=== PATIENT | female | born 1980 | race Hispanic/Latino ===

== ENCOUNTER 2020-01-03 11:59 | Emergency (ER) | payer OTHER ==
[2020-01-03 12:16] VITALS: BP 129/72
[2020-01-03] MEDS ORDERED: KETOROLAC 30 MG/1 ML INJ IV ONE (13:06)
[2020-01-03] MEDS ORDERED: ONDANSETRON 4 MG/2 ML INJ IV ONE (13:06)
[2020-01-03 14:31] LABS: Basophils % (Auto) 0.2 % (0.0-1.8); Hematocrit 39.6 % (30.3-42.9); Hemoglobin 13.3 gm/dl (10.1-14.3); Lymphocytes # (Auto) 0.7 K/mm3 (1.2-5.4); Lymphocytes % (Auto) 6.1 % (13.4-35.0); Mean Corpuscular HGB Conc 34 % (30-34); Mean Corpuscular Volume 97 fl (79-97); Monocytes # (Auto) 0.4 K/mm3 (0.0-0.8); Monocytes % (Auto) 3.8 % (0.0-7.3); Platelet Count 237 K/mm3 (140-440); Red Blood Count 4.07 M/mm3 (3.65-5.03); Red Cell Distribution Width 13.2 % (13.2-15.2)
--- NOTE | 2020-01-03 14:37 | Emergency Department Report ---
ED Female HPI - General Chief complaint: Abdominal Pain Stated complaint: (L) LOWER BACK PAIN/PELVIS PAIN Time Seen by Provider: 01/03/20 12:59 Source: EMS Mode of arrival: Ambulatory Limitations: No Limitations - History of Present Illness Initial comments: Patient is a 39-year-old female presents emergency room with complaints of left flank pain and suprapubic abdominal pain that began yesterday. She has associated urinary frequency. She states that she has nausea and had one episode of vomiting. She has been able to tolerate p.o. intake. She states that yesterday she began taking Azo [id number]. She denies any diarrhea, dysuria, dark urine, odor to the urine, vaginal discharge or irritation, fever. She denies any past medical history. No allergies to medications. Last menstrual cycle 12/29/2019. - Related Data Previous Rx's Medication Instructions Recorded Last Taken Type Ketorolac [Toradol] 10 mg PO Q6H PRN #7 tablet 01/03/20 Unknown Rx Ondansetron [Zofran Odt] 4 mg PO Q8HR PRN #7 tab.rapdis 01/03/20 Unknown Rx Tamsulosin [Flomax] 0.4 mg PO QDAY #4 cap 01/03/20 Unknown Rx traMADoL [Ultram 50 MG tab] 50 mg PO Q6HR PRN #7 tablet 01/03/20 Unknown Rx ED Review of Systems ROS: Stated complaint: (L) LOWER BACK PAIN/PELVIS PAIN Other details as noted in HPI Comment: All other systems reviewed and negative ED Past Medical Hx - Social History Smoking Status: Never Smoker - Medications Home Medications: Home Medications Medication Instructions Recorded Confirmed Last Taken Type Ketorolac [Toradol] 10 mg PO Q6H PRN #7 tablet 01/03/20 Unknown Rx Ondansetron [Zofran Odt] 4 mg PO Q8HR PRN #7 tab.rapdis 01/03/20 Unknown Rx Tamsulosin [Flomax] 0.4 mg PO QDAY #4 cap 01/03/20 Unknown Rx traMADoL [Ultram 50 MG tab] 50 mg PO Q6HR PRN #7 tablet 01/03/20 Unknown Rx ED Physical Exam - General Limitations: No Limitations General appearance: alert, in no apparent distress - Head Head exam: Present: atraumatic, normocephalic - Eye Eye exam: Present: normal appearance - ENT ENT exam: Present: mucous membranes moist - Respiratory Respiratory exam: Present: normal lung sounds bilaterally. Absent: respiratory distress, wheezes, rales, rhonchi, stridor, chest wall tenderness, accessory muscle use, decreased breath sounds, prolonged expiratory - Cardiovascular Cardiovascular Exam: Present: regular rate, normal rhythm, normal heart sounds. Absent: systolic murmur, diastolic murmur, rubs, gallop - GI/Abdominal GI/Abdominal exam: Present: soft, normal bowel sounds. Absent: distended, tenderness, guarding, rebound, rigid - Back Exam Back exam: Present: CVA tenderness (L). Absent: CVA tenderness (R) - Neurological Exam Neurological exam: Present: alert, oriented X3 - Psychiatric Psychiatric exam: Present: normal affect, normal mood - Skin Skin exam: Present: warm, dry, intact ED Course Vital Signs 01/03/20 12:11 Temperature 98.7 F Pulse Rate 54 L Respiratory 18 Rate Blood Pressure 129/72 Blood Pressure 129/72 [Right] O2 Sat by Pulse 100 Oximetry ED Medical Decision Making - Lab Data Result diagrams: 01/03/20 13:55 01/03/20 13:55 Lab Results 01/03/20 01/03/20 01/03/20 Range/Units 13:14 13:55 13:55 WBC 10.9 (4.5-11.0) K/mm3 RBC 4.07 (3.65-5.03) M/mm3 Hgb 13.3 (10.1-14.3) gm/dl Hct 39.6 (30.3-42.9) % MCV 97 (79-97) fl MCH 33 H (28-32) pg MCHC 34 (30-34) % RDW 13.2 (13.2-15.2) % Plt Count 237 (140-440) K/mm3 Lymph % (Auto) 6.1 L (13.4-35.0) % [place] % (Auto) 3.8 (0.0-7.3) % Eos % (Auto) 0.0 (0.0-4.3) % Baso % (Auto) 0.2 (0.0-1.8) % Lymph # (Auto) 0.7 L (1.2-5.4) K/mm3 [place] # (Auto) 0.4 (0.0-0.8) K/mm3 Eos # (Auto) 0.0 (0.0-0.4) K/mm3 Baso # (Auto) 0.0 (0.0-0.1) K/mm3 Seg Neutrophils % 89.9 H (40.0-70.0) % Seg Neutrophils # 9.8 H (1.8-7.7) K/mm3 Sodium 144 (137-145) mmol/L Potassium 4.5 (3.6-5.0) mmol/L Chloride 104.8 (98-107) mmol/L Carbon Dioxide 20 L (22-30) mmol/L Anion Gap 24 mmol/L BUN 16 (7-17) mg/dL Creatinine 0.8 (0.6-1.2) mg/dL Estimated GFR > 60 ml/min BUN/Creatinine Ratio 20 % Glucose 113 H (65-100) mg/dL Calcium 10.2 (8.4-10.2) mg/dL Total Bilirubin 0.70 (0.1-1.2) mg/dL AST 15 (5-40) units/L ALT 13 (7-56) units/L Alkaline Phosphatase 82 (35-129) units/L Total Protein 8.1 (6.3-8.2) g/dL Albumin 4.8 (3.9-5) g/dL Albumin/Globulin Ratio 1.5 % Urine Color [place] (Yellow) Urine Turbidity Clear (Clear) Urine pH TNR Ur Specific [place] 1.028 (1.003-1.030) Urine Protein TNR Urine Glucose (UA) TNR Urine Ketones TNR Urine Blood TNR Urine Nitrite TNR Urine Bilirubin TNR Urine Urobilinogen TNR Ur Leukocyte Esterase TNR Urine WBC (Auto) 5.0 (0.0-6.0) /HPF Urine RBC (Auto) 85.0 (0.0-6.0) /HPF U Epithel Cells (Auto) 5.0 (0-13.0) /HPF Urine Bacteria (Auto) 1+ (Negative) /HPF Urine Mucus 3+ /HPF Urine HCG, Qual Negative (Negative) - Radiology Data Radiology results: report reviewed CT abdomen pelvis wo con INDICATION / CLINICAL INFORMATION: left flank pain. TECHNIQUE: Axial CT imaging of abdomen and pelvis was obtained without contrast. Coronal and sagittal reformatted imaging obtained and reviewed. All CT scans at this location are performed using CT dose reduction for ALARA by means of automated exposure control. COMPARISON: None available. FINDINGS: CT abdomen without contrast demonstrates normal appearance of the liver, spleen, pancreas, right kidney, and adrenal glands, for noncontrast exam. No obvious gallbladder abn ormality. There is mild left hydronephrosis caused by a 6 mm calculus in the distal ureter. The calculus is approximately 1.3 cm from the left ureteral orifice. No additional calculi are seen within the urinary tract. CT pelvis without contrast shows mildly enlarged uterus. A 2.4 cm left ovarian cyst incidentally noted. No free fluid. Surgical clips are adjacent to the cecum indicative of prior appendectomy. GI tract is grossly unremarkable. Visualized lung bases are clear. Review of osseous structures is unremarkable. IMPRESSION: 1. Mild left hydronephrosis caused by a 6 mm calculus in the distal left ureter. Signer Name: Karina Reyes MD Signed: 01/03/2020 4:25 PM Workstation Name: [id number] Transcribed By: Dictated By: Karina Reyes MD Electronically Authenticated By: Karina Reyes MD Signed Date/Time: 01/03/201624 DD/ 20 TD/TT: - Medical Decision Making Patient is a 39-year-old female presents emergency room with complaints of left flank pain and suprapubic abdominal pain that began yesterday. She has associated urinary frequency. She states that she has nausea and had one ep isode of vomiting. She has been able to tolerate p.o. intake. She states that yesterday she began taking Azo [id number]. She denies any diarrhea, dysuria, dark urine, odor to the urine, vaginal discharge or irritation, fever. She denies any past medical history. No allergies to medications. Last menstrual cycle 12/29/2019. Vitals are stable. On exam: Left CVA tenderness. Labs are stable. UA shows evidence of red blood cells, no signs of UTI. CT abd pelvis without contrast: 1. Mild left hydronephrosis caused by a 6 mm calculus in the distal left ureter. Patient given pain medications and symptoms completely resolved and she was feeling much better ready to go home. Discussed all results with patient. Patient given her CT report. Patient given prescription for Zofran, flomax, tramadol, toradol. Advised patient Please take medication as prescribed. Do not drive or operate machinery while taking pain medication. Increase your water intake. Follow-up with your primary care doctor. Follow-up with urologist. Return to emergency room for any new or worsening symptoms. - Differential Diagnosis UTI, pyelonephritis, nephrolithiasis, hydronephrosis, obstruction Critical care attestation.: If time is entered above; I have spent that time in minutes in the direct care of this critically ill patient, excluding procedure time. ED Disposition Clinical Impression: Left flank pain, Nephrolithiasis Hydronephrosis Qualifiers: Hydronephrosis type: unspecified Qualified Code(s): N13.30 - Unspecified h ydronephrosis Disposition: TO HOME OR SELFCARE Is pt being admited?: No Does the pt Need Aspirin: No Condition: Stable Instructions: Kidney Stones (ED), Abdominal Pain (ED) Additional Instructions: Please take medication as prescribed. Do not drive or operate machinery while taking pain medication. Increase your water intake. Follow-up with your primary care doctor. Follow-up with urologist. Return to emergency room for any new or worsening symptoms. Prescriptions: Tamsulosin [Flomax] 0.4 mg PO QDAY #4 cap Ketorolac [Toradol] 10 mg PO Q6H PRN #7 tablet PRN Reason: Pain, Moderate (4-6) traMADoL [Ultram 50 MG tab] 50 mg PO Q6HR PRN #7 tablet PRN Reason: Pain , Severe (7-10) Ondansetron [Zofran Odt] 4 mg PO Q8HR PRN #7 tab.rapdis PRN Reason: Nausea And Vomiting Referrals: PRIMARY MD JORDYN [Primary Care Provider] - 2-3 Days CHRIS ROBLES MD [Staff Physician] - 2-3 Days [facility] [Provider Group] - 2-3 Days ERNESTO CAMPBELL MD [Staff Physician] - 2-3 Days Time of Disposition: 16:33 Print Language: CANADIAN
[2020-01-03 14:57] LABS: Color,Urine Orange (Yellow)
[2020-01-03 14:58] LABS: Bilirubin,Urine TNR (Negative)
[2020-01-03 14:59] LABS: Blood,Urine TNR (Negative); PH,Urine TNR (5.0-7.0); Protein,Urine TNR mg/dL (Negative); Urobilinogen,Urine TNR mg/dL (<2.0)
[2020-01-03 15:00] LABS: Alanine Aminotransferase 13 units/L (7-56); Albumin 4.8 g/dL (3.9-5); BUN/Creatinine Ratio 20; Blood Urea Nitrogen 16 mg/dL (7-17); Calcium 10.2 mg/dL (8.4-10.2); Hemolysis Index 19
[2020-01-03 15:04] LABS: HCG Qualitative,Urine Negative (Negative)
[2020-01-03 15:07] LABS: Bacteria,Urine 1+ /HPF (Negative); Mucus,Urine 3+ /HPF
[2020-01-03] MEDS ORDERED: HYDROmorphone 1 MG/1 ML INJ IV ONE (15:21)
--- NOTE | 2020-01-03 16:29 | Cat Scan Report ---
CT abdomen pelvis wo con INDICATION / CLINICAL INFORMATION: left flank pain. TECHNIQUE: Axial CT imaging of abdomen and pelvis was obtained without contrast. Coronal and sagittal reformatte d imaging obtained and reviewed. All CT scans at this location are performed using CT dose reduction for ALARA by means of automated exposure control. COMPARISON: None available. FINDINGS: CT abdomen without contrast demonstrates normal appearance of the liver, spleen, pancreas, right kidn ey, and adrenal glands, for noncontrast exam. No obvious gallbladder abnormality. There is mild left hydronephrosis caused by a 6 mm calculus in the distal ureter. The calculus is abbey roximately 1.3 cm from the left ureteral orifice. No additional calculi are seen within the urinary t ract. CT pelvis without contrast shows mildly enlarged uterus. A 2.4 cm left ovarian cyst incidentally note d. No free fluid. Surgical clips are adjacent to the cecum indicative of prior appendectomy. GI tract is grossly unremarkable. Visualized lung bases are clear. Review of osseous structures is unremarkable. IMPRESSION: 1. Mild left hydronephrosis caused by a 6 mm calculus in the distal left ureter. Signer Name: Karina Reyes MD Signed: 01/03/2020 4:25 PM Workstation Name: [id number]
== END 2020-01-03 16:47 | disposition home or self-care (01) ==
LOC: ED 11:59
DX: N13.30 Unspecified hydronephrosis (principal); N20.0 Calculus of kidney; R10.9 Unspecified abdominal pain; Z79.899 Other long term (current) drug therapy
CPT/HCPCS: 36415; 74176; 80053; 81001; 81025; 85025; 96374; 96375; 99284; J1170; J1885; J2405